=== PATIENT | female | born 1980 | race American Indian/Alaskan Native ===

== ENCOUNTER 2017-03-14 16:18 | Emergency (ER) | payer BC ==
[2017-03-14] MEDS ORDERED: XYLOCAINE 1% MPF 5 mL INFILTRATI ONE (16:34)
[2017-03-14] MEDS ORDERED: ROCEPHIN IM ONE (16:34)
[2017-03-14] MEDS ORDERED: DECADRON IM ONE (16:34)
--- NOTE | 2017-03-14 16:40 | Emergency Department Report ---
Minor Respiratory - HPI Chief Complaint: Upper Respiratory Infection Stated Complaint: EARACHE/SOB/SINUS PROBLEMS Time Seen by Provider: 03/14/17 16:24 Duration: STARTED P FLU SHOT Pain Location: Facial, Ear Severity: mild Minor Respiratory: Yes Able to Tolerate Fluids, Yes Ear Pain, No Rhinorrhea, No Sore Throat, No Cough, No Sick Contacts, No Hemoptysis, No Chest Pain, No Shortness of Breath (FEELS LIKE CAN NOT GET DEEP BREATH), No Fever ED Review of Systems ROS: Stated complaint: EARACHE/SOB/SINUS PROBLEMS Other details as noted in HPI Comment: All other systems reviewed and negative Constitutional: denies: fever ENT: ear pain, other (POST NASAL) Respiratory: other (DIFF GETTING DEEP BREATH) ED Past Medical Hx - Past Medical History Previous Medical History?: No - Surgical History Past Surgical History?: Yes Hx Cholecystectomy: Yes - Social History Smoking Status: Never Smoker Substance Use Type: None - Medications Home Medications: Home Medications Medication Instructions Recorded Confirmed Last Taken Type Cephalexin [Keflex] 500 mg PO Q12HR #20 cap 03/14/17 Unknown Rx Fluticasone [Flonase] 1 spray NS BID #1 bottle 03/14/17 Unknown Rx methylPREDNISolone [Medrol] 4 mg PO DAILY #1 tab.ds.pk 03/14/17 Unknown Rx Minor Respiratory Exam - Exam General: Vital signs noted. No distress. Alert and acting appropriately. HEENT: Yes Moist Mucous Membranes, No Pharyngeal Erythema, No Pharyngeal Exudates, No Rhinorrhea, No Conjuctival Injection, No Frontal Tenderness, No Maxillary Tenderness Ear: Neither TM Bulge, Neither TM Erythema, Neither EAC Pain, Neither EAC Discharge (CERUMEN R MORE THAN L) Neck: Yes Supple, No Adenopathy Lungs: Yes Good Air Exchange, No Wheezes, No Ronchi, No Stridor, No Cough, No Labored Respirations, No Retractions, No Use of Accessory Muscles, No Other Abnormal Lung Sounds Heart: Yes Regular, No Murmur Skin: No Rash, No Edema Neurologic: Alert and oriented, no deficits. Musculoskeletal: Unremarkable. ED Course - Reevaluation(s) Reevaluation #1: 03/14/17 17:03 RN HERE IN ED SHE NOTED NOT FEELING WELL P FLU SHOT SHE DEVELOPED SINUS DRAINAGE TOOK OTC AFRIN AND FLONASE GOT NOSE BLEEDS THEN TOOK PSEUDOEPH ON WEDNESDAY RR 18, HR 88 TODAY AT WORK HAS HEAD STUFFINESS PAIN IN B EARS POST NASAL DRIP W RASPY COUGH OTHERWISE CLEAR BOGGY UVULA NO FRONTAL OR MAX TENDERNESS TO TACHY OR HYPOTENSION B CERUMEN R MORE THAN L AMBULATORY NO FEVER NON TOXIC GIVEN EXPOSURE ROCEPHIN AND DECADRON W OTC S/S TX DC HOME W DC POC ED Medical Decision Making - Medical Decision Making SEE NOTE - Differential Diagnosis URTI Critical care attestation.: If time is entered above; I have spent that time in minutes in the direct care of this critically ill patient, excluding procedure time. ED Disposition Clinical Impression: Sinusitis Disposition: DC- TO HOME OR SELFCARE Is pt being admited?: No Does the pt Need Aspirin: No Condition: Stable Instructions: Sinusitis (ED) Additional Instructions: REST FLUIDS OVER THE COUNTER FLONASE BID MEDS ORDERED START IN AM FOLLOW UP PCP IF PERSISTS START ANTIBIOTIC IF FEVER OR PURULENT SPUTUM MOTRIN FOR PAIN OR DISCOMFORT OVER THE COUNTER DEBROX FOR CERUMEN IN EARS Prescriptions: Cephalexin [Keflex] 500 mg PO Q12HR #20 cap Fluticasone [Flonase] 1 spray NS BID #1 bottle methylPREDNISolone [Medrol] 4 mg PO DAILY #1 tab.ds.pk Referrals: MARRY CONNORS MD [Staff Physician] - 3-5 Days Time of Disposition: 16:41
[2017-03-14 17:16] VITALS: BP 123/85
== END 2017-03-14 17:16 | disposition home or self-care (01) ==
LOC: ED 16:18
DX: J32.9 Chronic sinusitis, unspecified (principal)
CPT/HCPCS: 96372; 99282; J0696; J1100

== ENCOUNTER 2017-10-25 07:11 | Emergency (ER) | payer BC ==
[2017-10-25 08:53] LABS: Basophils % (Auto) 0.1 % (0.0-1.8); Hemoglobin 11.6 gm/dl (10.1-14.3); Lymphocytes # (Auto) 1.4 K/mm3 (1.2-5.4); Lymphocytes % (Auto) 18.1 % (13.4-35.0); Mean Corpuscular HGB Conc 33 % (30-34); Mean Corpuscular Hemoglobin 26 pg (28-32); Mean Corpuscular Volume 78 fl (79-97); Monocytes # (Auto) 0.5 K/mm3 (0.0-0.8); Monocytes % (Auto) 6.1 % (0.0-7.3); Platelet Count 291 K/mm3 (140-440); Red Blood Count 4.48 M/mm3 (3.65-5.03); Red Cell Distribution Width 15.2 % (13.2-15.2)
[2017-10-25 08:58] LABS: Bacteria,Urine 1+ /HPF (Negative); Bilirubin,Urine NEG (Negative); Blood,Urine MOD (Negative); Color,Urine Yellow (Yellow); Mucus,Urine FEW /HPF; Protein,Urine <15 mg/dL mg/dL (Negative)
--- NOTE | 2017-10-25 09:01 | Emergency Department Report ---
ED Abdominal Pain HPI - General Chief Complaint: Abdominal Pain Stated Complaint: ABD PAIN Time Seen by Provider: 10/25/17 08:31 Source: patient Mode of arrival: Ambulatory Limitations: No Limitations - History of Present Illness Initial Comments: 36-year-old female past medical history presents with complaint of 2-3 days of epigastric pain. Patient is awake alert and oriented 3 not in acute distress but does state that she has had waxing and waning epigastric pain for 2 days with some associated nausea. Patient states that she had at a fast food restaurant and became nauseous afterward. Patient states she had at [employer]. Denies any diarrhea denies any recent antibiotic use denies any recent travel. Patient does endorse some increased urinary frequency but denies flank pain. Denies any chest pain or palpitations. Denies any shortness of breath. She states that when she urinates she finds it uncomfortable and has been experiencing this for 2-3 days. Patient states she is on control. Last menstrual period 10/13/17. MD Complaint: abdominal pain Onset/Timin -: days(s) Location: epigastric, suprapubic Radiation: epigastric, suprapubic Migration to: no migration Severity: moderate Severity scale (0 -10): 8 Quality: aching Associated Symptoms: dysuria - Related Data Previous Rx's Medication Instructions Recorded Last Taken Type Cephalexin [Keflex] 500 mg PO Q12HR #20 cap 03/14/17 Unknown Rx Fluconazole [Diflucan] 150 mg PO ONCE #2 tablet 03/14/17 Unknown Rx Fluticasone [Flonase] 1 spray NS BID #1 bottle 03/14/17 Unknown Rx methylPREDNISolone [Medrol] 4 mg PO DAILY #1 tab.ds.pk 03/14/17 Unknown Rx Acetaminophen [Acetaminophen TAB] 500 mg PO Q6HR PRN #20 tablet 10/25/17 Unknown Rx Nitrofurantoin Monohyd/M-Cryst 100 mg PO BID #14 capsule 10/25/17 Unknown Rx [Macrobid 100 mg Capsule] Ondansetron [Zofran Odt] 4 mg PO Q8H PRN #10 tab.rapdis 10/25/17 Unknown Rx Phenazopyridine [Pyridium] 200 mg PO TID #6 tab 10/25/17 Unknown Rx Allergies Allergy/AdvReac Type Severity Reaction Status Date / Time No Known Allergies Allergy Unverified 03/14/17 16:28 ED Review of Systems ROS: Stated complaint: ABD PAIN Other details as noted in HPI Constitutional: denies: chills, fever Eyes: denies: eye pain, eye discharge, vision change ENT: denies: ear pain, throat pain Respiratory: denies: cough, shortness of breath, wheezing Cardiovascular: denies: chest pain, palpitations Endocrine: no symptoms reported Gastrointestinal: denies: abdominal pain, nausea, diarrhea Genitourinary: denies: urgency, dysuria, discharge Musculoskeletal: denies: back pain, joint swelling, arthralgia Skin: denies: rash, lesions Neurological: denies: headache, weakness, paresthesias Psychiatric: denies: anxiety, depression Hematological/Lymphatic: denies: easy bleeding, easy bruising ED Past Medical Hx - Surgical History Hx Cholecystectomy: Yes - Social History Smoking Status: Never Smoker Substance Use Type: None - Medications Home Medications: Home Medications Medication Instructions Recorded Confirmed Last Taken Type Cephalexin [Keflex] 500 mg PO Q12HR #20 cap 03/14/17 Unknown Rx Fluconazole [Diflucan] 150 mg PO ONCE #2 tablet 03/14/17 Unknown Rx Fluticasone [Flonase] 1 spray NS BID #1 bottle 03/14/17 Unknown Rx methylPREDNISolone [Medrol] 4 mg PO DAILY #1 tab.ds.pk 03/14/17 Unknown Rx Acetaminophen [Acetaminophen TAB] 500 mg PO Q6HR PRN #20 tablet 10/25/17 Unknown Rx Nitrofurantoin Monohyd/M-Cryst 100 mg PO BID #14 capsule 10/25/17 Unknown Rx [Macrobid 100 mg Capsule] Ondansetron [Zofran Odt] 4 mg PO Q8H PRN #10 tab.rapdis 10/25/17 Unknown Rx Phenazopyridine [Pyridium] 200 mg PO TID #6 tab 10/25/17 Unknown Rx ED Physical Exam - General Limitations: No Limitations General appearance: alert, in no apparent distress - Head Head exam: Present: atraumatic, normocephalic - Eye Eye exam: Present: normal appearance, PERRL, EOMI - ENT ENT exam: Present: mucous membranes moist - Neck Neck exam: Present: normal inspection - Respiratory Respiratory exam: Present: normal lung sounds bilaterally. Absent: respiratory distress - Cardiovascular Cardiovascular Exam: Present: regular rate, normal rhythm. Absent: systolic murmur, diastolic murmur, rubs, gallop - GI/Abdominal GI/Abdominal exam: Present: soft, normal bowel sounds - Extremities Exam Extremities exam: Present: normal inspection - Back Exam Back exam: Present: normal inspection - Neurological Exam Neurological exam: Present: alert, oriented X3 - Psychiatric Psychiatric exam: Present: normal affect, normal mood - Skin Skin exam: Present: warm, dry, intact, normal color. Absent: rash ED Course Vital Signs 10/25/17 07:26 Temperature 98.7 F Pulse Rate 102 H Respiratory 18 Rate Blood Pressure 123/80 [Left] O2 Sat by Pulse 100 Oximetry ED Medical Decision Making - Lab Data Result diagrams: 10/25/17 08:40 10/25/17 08:37 - Medical Decision Making A/P: Urinary tract infection, acute gastroenteritis 1-patient is tolerating by mouth without significant difficulty 2-urinalysis shows large leukocytes treat empirically and context of her symptoms with course of Macrobid. I discussed this with Dr. Jain 3-no clinical pyelonephritis. This patient did have some epigastric tenderness on palpation CT scan performed. Unremarkable. Patient does have bilateral ovarian cysts she was aware of this. Patient has no vaginal discharge or pelvic pain that she reports at this time. No flank tenderness on percussion 4-Tylenol when necessary, Pyridium, Macrobid. Urine culture sent 5-I advised patient to return to the ED if she feels fevers chills cannot tolerate anything by mouth or experiences worsening symptoms. She stated she understood my instructions. Follow-up with primary care doctor. Critical care attestation.: If time is entered above; I have spent that time in minutes in the direct care of this critically ill patient, excluding procedure time. ED Disposition Clinical Impression: Acute gastroenteritis, Epigastric pain Urinary tract infection Qualifiers: Urinary tract infection type: acute cystitis Hematuria presence: without hematuria Qualified Code(s): N30.00 - Acute cystitis without hematuria Disposition: TO HOME OR SELFCARE Is pt being admited?: No Does the pt Need Aspirin: No Condition: Stable Instructions: Abdominal Pain (ED), Urinary Tract Infection in Women (ED), Dysuria (ED), Food Poisoning (ED), Gastroenteritis (ED) Prescriptions: Acetaminophen [Acetaminophen TAB] 500 mg PO Q6HR PRN #20 tablet PRN Reason: Pain , Severe (7-10) Nitrofurantoin Monohyd/M-Cryst [Macrobid 100 mg Capsule] 100 mg PO BID #14 capsule Ondansetron [Zofran Odt] 4 mg PO Q8H PRN #10 tab.rapdis PRN Reason: Nausea Phenazopyridine [Pyridium] 200 mg PO TID #6 tab Referrals: [facility] [Provider Group] - 3-5 Days ALEX SCHREIBER MD [Staff Physician] - 3-5 Days Forms: Work/School Release Form(ED) Time of Disposition: 11:18
[2017-10-25] MEDS ORDERED: MORPHINE IV ONE (09:05)
[2017-10-25] MEDS ORDERED: NACL 0.9% 1000 ML 1,000 ML IV ONE (09:05)
[2017-10-25] MEDS ORDERED: ZOFRAN IV ONE (09:05)
[2017-10-25 09:19] LABS: Lipase 27 units/L (13-60)
[2017-10-25 09:21] LABS: Alanine Aminotransferase 18 units/L (7-56); Albumin 3.5 g/dL (3.9-5); BUN/Creatinine Ratio 11; Blood Urea Nitrogen 8 mg/dL (7-17); Calcium 7.9 mg/dL (8.4-10.2); Hemolysis Index 2
[2017-10-25 09:41] LABS: HCG Qualitative,Urine Negative (Negative)
--- NOTE | 2017-10-25 10:21 | Cat Scan Report ---
CT ABDOMEN PELVIS WITH CONTRAST: HISTORY: Epigastric pain, nausea, flank pain. COMPARISON: none. TECHNIQUE: Helical CT in 1.25mm intervals following IV contrast. Sagittal and coronal reconstructions. FINDINGS: Lung bases: Normal. Liver: Normal. Biliary system: Cholecystectomy. No biliary dilatation. Pancreas: Normal. Spleen: Normal. Kidneys/ureters/bladder: Normal. Adrenal glands: Normal. Aorta: Normal. Intestines: Normal. Appendix: Not confidently identified, correlate with surgical history. Pelvic viscera: The uterus and endometrium are within normal limits. There are bilateral simple appearing ovarian cysts measuring 5.2 cm on the right side and 4.4 cm on the left side. A moderate left ovarian vein varicosity is also identified. Ascites: None. Adenopathy: There are scattered borderline mesenteric lymph nodes of doubtful clinical significance. No bulky adenopathy. Musculoskeletal: Normal. IMPRESSION: Bilateral ovarian cysts as described. Cholecystectomy and probable appendectomy. No acute inflammatory process is identified.
[2017-10-25] MEDS ORDERED: cefTRIAXone 1 GM in NACL 0.9% 20 ML IV ONE (11:00)
[2017-10-25] MEDS ORDERED: MACROBID PO ONE (11:13)
[2017-10-25 11:30] VITALS: BP 112/75
== END 2017-10-25 11:50 | disposition home or self-care (01) ==
LOC: ED 07:11
DX: K52.9 Noninfective gastroenteritis and colitis, unspecified (principal); N30.00 Acute cystitis without hematuria; R10.13 Epigastric pain; Z90.49 Acquired absence of other specified parts of digestive tract
CPT/HCPCS: 36415; 74177; 80053; 81001; 81025; 82140; 82150; 83690; 85025; 96361; 96374; 96375; 99284; J2270; J2405; J7030; Q9967; 93005; 93010; J0696

== ENCOUNTER 2020-10-14 00:16 | Emergency (ER) | payer BC ==
--- NOTE | 2020-10-14 00:23 | Emergency Department Report ---
ED General Adult HPI - General Chief complaint: Medical Clearance Stated complaint: WEAKNESS PUI?: No Time Seen by Provider: 10/14/20 00:20 Source: patient, RN notes reviewed, old records reviewed Mode of arrival: Stretcher Limitations: No Limitations - History of Present Illness Initial comments: The patient was evaluated in the emergency department for symptoms described in the history of present illness. He/she was evaluated in the context of the global COVID-19 pandemic, which necessitated consideration that the patient might be at risk for infection with the virus that causes COVID-19. Institutional protocols and algorithms that pertain to the evaluation of patients at risk for COVID-19 are in a state of rapid change based on information released by regulatory bodies including the CDC and federal and state organizations. These policies and algorithms were followed during the patient's care in the emergency department. Please note that these policies, procedures and recommendations changed on a rapid basis. This is a 39-year-old female. She is not known to myself previously as a patient. 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 The patient presents to the ER today with a complaint of painless weakness and feeling fatigued. She recently started working night shifts while in the emergency room. She reports that after her physical meteorologist, she only gets 4 to 5 hours of sleep each day. On review of systems, she also reports that she snores quite a bit at night, when experiencing a normal circadian rhythm, that occasionally sleep is not rest ful, and that she sometimes has very vivid dreams, as well as restless legs. She has been doing quite a bit of traveling since Covid started, and has thus not received her Covid vaccination. However, she does indicate that she is not experiencing fever, loss of taste or smell, she also denies headache, neck pain, chest pain, abdominal pain, shortness of breath, urinary symptoms, muscular aches, hematemesis and bright red blood per rectum. The patient also states she has not had a formal outpatient sleep study. She does not have an existing diagnosis of obstructive sleep apnea that she is a tate of. Her primary complaint is feeling fatigued and tired, and feeling like she has inadequate sleep. -: Gradual, days(s) Consistency: intermittent Improves with: rest Worsens with: movement Associated Symptoms: denies other symptoms - Related Data Previous Rx's Medication Instructions Recorded Last Taken Type Fluconazole [Diflucan] 150 mg PO ONCE #2 tablet 03/14/17 Unknown Rx Fluticasone [Flonase] 1 spray NS BID #1 bottle 03/14/17 Unknown Rx cephALEXin [Keflex] 500 mg PO Q12HR #20 cap 03/14/17 Unknown Rx methylPREDNISolone [Medrol] 4 mg PO DAILY #1 tab.ds.pk 03/14/17 Unknown Rx Acetaminophen [Acetaminophen TAB] 500 mg PO Q6HR PRN #20 tablet 10/25/17 Unknown Rx Nitrofurantoin Monohyd/M-Cryst 100 mg PO BID #14 capsule 10/25/17 Unknown Rx [Macrobid 100 mg Capsule] Ondansetron [Zofran Odt] 4 mg PO Q8H PRN #10 tab.rapdis 10/25/17 Unknown Rx Phenazopyridine [Pyridium] 200 mg PO TID #6 tab 10/25/17 Unknown Rx Allergies Allergy/AdvReac Type Severity Reaction Status Date / Time No Known Allergies Allergy Unverified 03/14/17 16:28 ED Review of Systems ROS: Stated complaint: WEAKNESS Other details as noted in HPI Constitutional: malaise, weakness. denies: fever (Denies loss of taste and s armen) Respiratory: denies: cough, shortness of breath Cardiovascular: denies: chest pain Gastrointestinal: denies: abdominal pain, hematemesis, melena, hematochezia Genitourinary: denies: dysuria Neurological: weakness. denies: numbness, paresthesias Hematological/Lymphatic: denies: easy bleeding ED Past Medical Hx - Surgical History Hx Cholecystectomy: Yes - Social History Smoking Status: Never Smoker Substance Use Type: None - Medications Home Medications: Home Medications Medication Instructions Recorded Confirmed Last Taken Type Fluconazole [Diflucan] 150 mg PO ONCE #2 tablet 03/14/17 Unknown Rx Fluticasone [Flonase] 1 spray NS BID #1 bottle 03/14/17 Unknown Rx cephALEXin [Keflex] 500 mg PO Q12HR #20 cap 03/14/17 Unknown Rx methylPREDNISolone [Medrol] 4 mg PO DAILY #1 tab.ds.pk 03/14/17 Unknown Rx Acetaminophen [Acetaminophen TAB] 500 mg PO Q6HR PRN #20 tablet 10/25/17 Unknown Rx Nitrofurantoin Monohyd/M-Cryst 100 mg PO BID #14 capsule 10/25/17 Unknown Rx [Macrobid 100 mg Capsule] Ondansetron [Zofran Odt] 4 mg PO Q8H PRN #10 tab.rapdis 10/25/17 Unknown Rx Phenazopyridine [Pyridium] 200 mg PO TID #6 tab 10/25/17 Unknown Rx ED Physical Exam - General Limitations: No Limitations, Other (During the physical examination, I am chaperoned by special delivery clerk Love Mohan) General appearance: alert, in no apparent distress, obese - Head Head exam: Present: atraumatic, normocephalic - Eye Eye exam: Present: normal appearance, EOMI. Absent: nystagmus - ENT ENT exam: Present: normal exam, normal orophraynx, mucous membranes moist, normal external ear exam - Neck Neck exam: Present: normal inspection, full ROM. Absent: tenderness, meningismus - Respiratory Respiratory exam: Present: normal lung sounds bilaterally. Absent: respiratory distress, wheezes, rales, rhonchi, stridor, decreased breath sounds - Cardiovascular Cardiovascular Exam: Present: regular rate, normal rhythm, normal heart sounds. Absent: bradycardia, tachycardia, irregular rhythm, systolic murmur, diastolic murmur, rubs, gallop - GI/Abdominal GI/Abdominal exam: Present: soft, normal bowel sounds. Absent: distended, tenderness, guarding, rebound, rigid, pulsatile mass - Extremities Exam Extremities exam: Present: normal inspection, full ROM, other (2+ pulses noted in the bilateral upper and lower extremities. There is no palpable cord. negative Homans sign. Muscular compartments are soft. The pelvis is stable.). Absent: pedal edema, calf tenderness - Back Exam Back exam: Present: normal inspection, full ROM. Absent: tenderness, CVA tenderness (R), CVA tenderness (L), paraspinal tenderness, vertebral tenderness - Neurological Exam Neurological exam: Present: alert, oriented X3, normal gait, other (No facial droop. Tongue midline. Extraocular movements intact bilaterally. Facial sensation intact to light touch in V1, V2, V3 distribution bilaterally. 5 and a 5 strength in 4 extremities. Sensation intact to light touch in 4 extr emities.). Absent: motor sensory deficit - Psychiatric Psychiatric exam: Present: normal affect, normal mood - Skin Skin exam: Present: warm, dry, intact, normal color. 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 She walks with a steady gait, and has a GCS of 15. Vital signs are unremarkable at this time. Physical exam benign and unremarkable, patient has been working earlier on this evening, with mutual patient, without any acute distress. We discussed proper sleep hygiene, and need to follow-up as an outpatient for dedicated sleep study. Appropriate laboratory studies are pending at this time. Reassess after initial data points. Patient did request IV fluids, and I informed patient that she will better absorb fluids orally rather than do an IV, and she is welcome to consume as much ice water as she likes while here in the emergency room. Reevaluation #2: 10/14/20 01:50 Patient in no distress. Walking around with a steady gait. Laboratory studies unremarkable for any emergent pathology. Patient may follow-up as an outpatient. Does not appear to have an emergent condition present at this time. ED Medical Decision Making - Lab Data Result diagrams: 10/14/20 00:59 10/14/20 00:59 Vital Signs 10/14/20 01:15 Temperature 98.2 F Pulse Rate 88 Respiratory 16 Rate Blood Pressure 123/79 [Left] O2 Sat by Pulse 98 Oximetry Lab Results 10/14/20 10/14/20 10/14/20 Range/Units 00:59 00:59 00:59 WBC 9.9 (4.5-11.0) K/mm3 RBC 4.22 (3.65-5.03) M/mm3 Hgb 10.6 (10.1-14.3) gm/dl Hct 32.0 (30.3-42.9) % MCV 76 L (79-97) fl MCH 25 L (28-32) pg MCHC 33 (30-34) % RDW 16.1 H (13.2-15.2) % Plt Count 325 (140-440) K/mm3 Lymph % (Auto) 36.7 H (13.4-35.0) % [place] % (Auto) 7.5 H (0.0-7.3) % Eos % (Auto) 1.3 (0.0-4.3) % Baso % (Auto) 0.4 (0.0-1.8) % Lymph # (Auto) 3.6 (1.2-5.4) K/mm3 [place] # (Auto) 0.7 (0.0-0.8) K/mm3 Eos # (Auto) 0.1 (0.0-0.4) K/mm3 Baso # (Auto) 0.0 (0.0-0.1) K/mm3 Seg Neutrophils % 54.1 (40.0-70.0) % Seg Neutrophils # 5.3 (1.8-7.7) K/mm3 PT 13.5 (12.2-14.9) Sec. INR 1.04 (0.87-1.13) Sodium 134 L (137-145) mmol/L Potassium 3.9 (3.6-5.0) mmol/L Chloride 97.0 L (98-107) mmol/L Carbon Dioxide 28 (22-30) mmol/L Anion Gap 13 mmol/L BUN 10 (7-17) mg/dL Creatinine 0.6 (0.6-1.2) mg/dL Estimated GFR > 60 ml/min BUN/Creatinine Ratio 17 % Glucose 122 H (65-100) mg/dL Calcium 9.1 (8.4-10.2) mg/dL Magnesium 1.80 (1.7-2.3) mg/dL Total Bilirubin 0.30 (0.1-1.2) mg/dL AST 16 (5-40) units/L ALT 14 (7-56) units/L Alkaline Phosphatase 87 (35-129) units/L Total Creatine Kinase 208 H (30-135) units/L Total Protein 7.9 (6.3-8.2) g/dL Albumin 4.1 (3.9-5) g/dL Albumin/Globulin Ratio 1.1 % TSH (0.270-4.200) mlU/mL HCG, Quant (0-4) mIU/mL 10/14/20 10/14/20 Range/Units 00:59 00:59 WBC (4.5-11.0) K/mm3 RBC (3.65-5.03) M/mm3 Hgb (10.1-14.3) gm/dl Hct (30.3-42.9) % MCV (79-97) fl MCH (28-32) pg MCHC (30-34) % RDW (13.2-15.2) % Plt Count (140-440) K/mm3 Lymph % (Auto) (13.4-35.0) % [place] % (Auto) (0.0-7.3) % Eos % (Auto) (0.0-4.3) % Baso % (Auto) (0.0-1.8) % Lymph # (Auto) (1.2-5.4) K/mm3 [place] # (Auto) (0.0-0.8) K/mm3 Eos # (Auto) (0.0-0.4) K/mm3 Baso # (Auto) (0.0-0.1) K/mm3 Seg Neutrophils % (40.0-70.0) % Seg Neutrophils # (1.8-7.7) K/mm3 PT (12.2-14.9) Sec. INR (0.87-1.13) Sodium (137-145) mmol/L Potassium (3.6-5.0) mmol/L Chloride (98-107) mmol/L Carbon Dioxide (22-30) mmol/L Anion Gap mmol/L BUN (7-17) mg/dL Creatinine (0.6-1.2) mg/dL Estimated GFR ml/min BUN/Creatinine Ratio % Glucose (65-100) mg/dL Calcium (8.4-10.2) mg/dL Magnesium (1.7-2.3) mg/dL Total Bilirubin (0.1-1.2) mg/dL AST (5-40) units/L ALT (7-56) units/L Alkaline Phosphatase (35-129) units/L Total Creatine Kinase (30-135) units/L Total Protein (6.3-8.2) g/dL Albumin (3.9-5) g/dL Albumin/Globulin Ratio % TSH 1.150 (0.270-4.200) mlU/mL HCG, Quant < 2 (0-4) mIU/mL - EKG Data -: EKG Interpreted by Me EKG shows normal: sinus rhythm Rate: normal - EKG Data 10/14/20 01:20 EKG interpreted at 01: 10 AM Sinus rhythm, 80 bpm. Normal axis, QTC 460 ms. Motion artifact, poor R wave progression, high left ventricular voltage. This is an abnormal EKG. This is not a STEMI. Critical care attestation.: If time is entered above; I have spent that time in minutes in the direct care of this critically ill patient, excluding procedure time. ED Disposition Clinical Impression: Sleep deprivation, BMI 36.0-36.9,adult, Encounter for medical screening examination Disposition: TO HOME OR SELFCARE Is pt being admited?: No Does the pt Need Aspirin: No Condition: Good Instructions: BMI for Adults, Health Maintenance, Female, Medical Screening Exam Additional Instructions: Recommend that patient get at least 8 hours of good quality uninterrupted sleep every day. 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 We also recommend diet, exercise, weight loss, and follow-up with your primary care doctor or sleep specialist within the next week to 2 weeks for outpatient evaluation of obstructive sleep apnea. Untreated obstructive sleep apnea is a risk factor for heart disease, stroke, disability, paralysis, loss of quality of life. Dr. Lea Lanza is a local sleep specialist/middleware systems architect. Dr. Perry is a local primary care doctor. Please return to the emergency room right away with new pain, worsened pain, migration of pain, projectile vomiting, change in mental status, confusion, inability to tolerate liquid feeds, new, worsened or different symptoms not present on the initial emergency room evaluation. Referrals: HALIE LANZA MD [Staff Physician] - 3-5 Days KEM PERRY MD [Staff Physician] - 3-5 Days
[2020-10-14 01:17] VITALS: BP 123/79
[2020-10-14 01:21] LABS: Basophils % (Auto) 0.4 % (0.0-1.8); Eosinophils # (Auto) 0.1 K/mm3 (0.0-0.4); Eosinophils % (Auto) 1.3 % (0.0-4.3); Hemoglobin 10.6 gm/dl (10.1-14.3); Lymphocytes # (Auto) 3.6 K/mm3 (1.2-5.4); Lymphocytes % (Auto) 36.7 % (13.4-35.0); Mean Corpuscular HGB Conc 33 % (30-34); Mean Corpuscular Volume 76 fl (79-97); Monocytes # (Auto) 0.7 K/mm3 (0.0-0.8); Monocytes % (Auto) 7.5 % (0.0-7.3); Platelet Count 325 K/mm3 (140-440); Red Blood Count 4.22 M/mm3 (3.65-5.03); Red Cell Distribution Width 16.1 % (13.2-15.2)
[2020-10-14 01:31] LABS: INR 1.04 (0.87-1.13)
[2020-10-14 01:33] LABS: Alanine Aminotransferase 14 units/L (7-56); Albumin 4.1 g/dL (3.9-5); Blood Urea Nitrogen 10 mg/dL (7-17); Calcium 9.1 mg/dL (8.4-10.2); Hemolysis Index 1
[2020-10-14 01:34] LABS: BUN/Creatinine Ratio 17
--- NOTE | 2020-10-16 10:09 | Electrocardiograph Report ---
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
== END 2020-10-14 02:24 | disposition home or self-care (01) ==
LOC: ED 00:16
DX: R53.1 Weakness (principal); R53.83 Other fatigue; Z72.820 Sleep deprivation; Z68.30 Body mass index [BMI] 30.0-30.9, adult; Z90.49 Acquired absence of other specified parts of digestive tract; Z79.899 Other long term (current) drug therapy; R79.1 Abnormal coagulation profile
CPT/HCPCS: 36415; 80053; 82550; 83735; 84443; 84702; 85025; 85610; 93005; 99283